=== PATIENT | female | born 2000 | race Hispanic/Latino ===

== ENCOUNTER 2024-08-01 12:20 | Emergency (ER) | payer OTHER ==
[~2024-08-01] VITALS: Ht 149.9 cm; Wt 65.5 kg
[2024-08-01] MEDS ORDERED: OSEL75CA PO (14:12)
[2024-08-01 14:47] VITALS: BP 105/67; TEMP 97.4; O2SAT 100
== END 2024-08-01 14:48 | disposition home or self-care (01) ==
LOC: M ED 12:20
DX: J09.X2 Influenza due to identified novel influenza A virus with other respiratory manifestations (principal)